=== PATIENT | female | born 1975 | race Caucasian/White ===

== ENCOUNTER → 2016-11-29 | Outpatient (CLI) | payer OTHER, BC ==
[~2016-11-29] MED LIST: ACAI BERRY PO; DRV100 PO; FLAXSEED OIL PO; FRRS300 PO; HAIR SKIN PO; MXRAIN INH; OMEG10007 PO; SENN-61 PO; SENN-65 PO; [UNRECOGNIZED DRUG - OTHER] PO
--- NOTE | 2016-11-29 15:12 | DIAGNOSTIC IMAGING REPORT ---
LEFT ELBOW MIN 3 VIEWS ROUTINE CLINICAL HISTORY: L ELBOW PAIN pain COMPARISON: None. DISCUSSION: The bones and joint spaces appear intact. There is no evidence of fracture, dislocation or bony disease. There is no evidence for soft tissue swelling. IMPRESSION: Negative study. Electronically signed by: Micheal Rosales M.D. 11/29/2016 3:11 PM Dictated Date/Time: 11/29/2016 3:08 PM
== END | disposition home or self-care (01) ==
LOC: C.RAD1850 14:53
PROVIDERS: ATTEND Emergency Medicine
DX: M25.522 Pain in left elbow (principal)

== ENCOUNTER → 2018-03-05 | Day surgery (SDC) | payer OTHER ==
[~2018-03-05] VITALS: Ht 163.8 cm; Wt 67.0 kg
[2018-03-05] VITALS (11 sets, daily range): BP systolic 99–131; BP diastolic 51–76; PULSE 64–81; TEMP 36.8–37.2; O2SAT 96–99; Ht 163.8 cm; Wt 67.0 kg
[~2018-03-05] MED LIST changes: +ACETAMINOPHEN 500 MG TAB PO PRN; +CHOL1000 PO; +HYDR12.55 PO; +MAGN400T6 PO; +RIBOCAP
--- NOTE | 2018-03-05 11:17 | Discharge Instructions ---
Discharge Instructions Procedure Procedure Date: March 05, 2018. Reason for visit: Headaches, Abnormal Brain Mri's *Opening Pressure*. Discharge Discharge Date: March 05, 2018. Discharge Diagnosis: Successful fluoroscopic guided lumbar puncture with normal opening pressure. Medications Restart Stopped Medication(s): Resume home meds Instructions Activity Recommendations: No limitations Return to School/Work: no limitations Recommended Home Diet: No Limitations Allergies Coded Allergies: Cephalexin (Verified Allergy, Mild, unknow possible rash, 03/05/18) Prednisone (Verified Allergy, Mild, jittery, 03/05/18) Uncoded Allergies: SEASONAL ALLERGIES (Allergy, Intermediate, sob, 03/05/18) [place] Recommendations: Call your doctor if: * Temperature above 101 degrees * Pain not relieved by pain medicine ordered * There is increased drainage or redness from any incision * You have any unanswered questions or concerns. Your Doctors Instructions noted above were prepared by provider Daniel Little. Patient Signature Section: Patient Instructions Signature Page Coleen Jarrett Patient (or Guardian) Signature/Date: I have read and understand the instructions given to me by my caregivers. Caregiver/RN/Doctor Signature/Date: The above-named patient and/or guardian has received patient instructions on this date. + Original Patient Signature Page (only) stays with chart. Please make copy for patient.
--- NOTE | 2018-03-05 11:22 | DIAGNOSTIC IMAGING REPORT ---
LUMBAR PUNCTURE DIAGNOSTIC CLINICAL HISTORY: 42 years-old Female presenting with PARESTHESIA ABN MRI BRAIN WORSENING KEATING LOWER LEG MUSCLE SPASMS . COMPARISON: None. PROCEDURE: The procedure, risks and benefits were discussed with the patient including the risk of spinal headache, bleeding and infection. The patient agreed to the procedure and informed written consent was obtained. The procedure was performed by Dr. Little following a timeout. The L2-3 interspinous space was targeted. Skin overlying the space was prepped and draped in the usual aseptic fashion and local anesthesia was achieved with 1% lidocaine. Under intermittent fluoroscopic guidance, a 20-gauge x 3 1/2 in. Sprotte needle was inserted into the thecal sac. Opening pressure was obtained in prone positioning, which measured 20 cmH2O. A total of 8 mL of clear, colorless cerebral spinal fluid was obtained and spread amongst 4 vials. The patient tolerated the procedure well. There were no immediate complications. The specimens were sent to the laboratory at the request of the referring physician. Reference range: Normal opening pressure 6-25 cmH2O (95% reference interval for lateral decubitus positioning). Fluoroscopy dosage (mGy): Not available. Fluoroscopy time: 0.2 minutes. Number of fluoroscopic spot images: 1. IMPRESSION: 1. Successful fluoroscopic guided lumbar puncture with removal of 8 mL of clear, colorless cerebral spinal fluid. No immediate complications. 2. Normal opening pressure. Electronically signed by: Daniel Little M.D. 03/05/2018 11:20 AM Dictated Date/Time: 03/05/2018 11:19 AM
[2018-03-05 11:35] LABS: CSF TOTAL PROTEIN 41.6 mg/dl (15.0-45.0)
== END | disposition home or self-care (01) ==
LOC: C.ACU 08:38
PROVIDERS: ATTEND Psychiatry & Neurology Neurology
DX: R20.2 Paresthesia of skin (principal); R90.89 Other abnormal findings on diagnostic imaging of central nervous system; R51 Headache; M62.838 Other muscle spasm